=== PATIENT | male | born 1960 | race Caucasian/White ===

== ENCOUNTER 2020-07-10 10:08 | Emergency (ER) | payer BC ==
[~2020-07-10] VITALS: Ht 172.7 cm; Wt 85.9 kg
[~2020-07-10 10:08] MED LIST: LIDOcaine 1% 30ml preserv. free vial ONE
[2020-07-10] MEDS ORDERED: TETanus/Pertussis (Acell)/Diphther VAC/PF (Tdap-Adult) 0.5ml syringe IMVAC ONE (11:10)
[2020-07-10] MEDS ORDERED: clindamycin 150mg capsule PO ONE (11:10)
[2020-07-10] MEDS ORDERED: nitroGLYCERIN 1gm ointment UD TP ONE (11:25)
[2020-07-10] MEDS ORDERED: CLIN150C8 PO (12:01)
[2020-07-10] MEDS ORDERED: HYDR-3965 PO (12:01)
[2020-07-10 12:17] VITALS: BP 152/90
== END 2020-07-10 12:23 | disposition home or self-care (01) ==
LOC: ER 10:09
DX: S61.211A Laceration without foreign body of left index finger without damage to nail, initial encounter (principal); Z89.022 Acquired absence of left finger(s); Z88.0 Allergy status to penicillin; Z79.899 Other long term (current) drug therapy; W29.8XXA Contact with other powered hand tools and household machinery, initial encounter; Y93.89 Activity, other specified; Y92.89 Other specified places as the place of occurrence of the external cause; Y99.8 Other external cause status
CPT/HCPCS: 12001; 73140; 90471; 90715; 99283; J2001